=== PATIENT | male | born 1945 | race Caucasian/White ===

== ENCOUNTER 2019-09-21 12:07 | Day surgery (SDC) | payer MEDICARE, BC ==
[2019-09-20 09:19] VITALS: BMI 27.1
[2019-09-21 12:48] LABS: #Eosinphils 0.1 thou/uL (0.0-0.7); #Lymphocytes 1.2 thou/uL (1.20-3.40); #Monocytes 0.5 thou/uL (0.11-0.59); #Neutrophils 3.7 thou/uL (1.40-6.50); %Basophils 0.5 % (0.0-1.0); %Lymphocytes 21.7 % (21.0-51.0); %Monocytes 9.6 % (0.0-10.0); %Neutrophils 66.2 % (42.0-75.0); Hemoglobin 12.8 g/dL (14.0-18.0); Mean Corpuscular HGB CONC 34.2 g/dL (32.0-36.0); Mean Corpuscular Hemoglobin 29.5 pg (27.0-31.0); Mean Corpuscular Volume 86.3 fL (78.0-98.0); Mean Platelet Volume 6.6 fL (7.4-10.4); Platelet Count 196 thou/uL (130-400); RBC Distribution Width 11.8 % (11.5-14.5); Red Blood Cell (RBC) Count 4.33 mill/uL (4.70-6.10); White Blood Cell (WBC) Count 5.6 thou/uL (4.8-10.8)
[2019-09-21 12:54] LABS: INR-International Normal Ratio 1.3; Prothrombin Time 15.7 SEC (12.0-14.7)
[2019-09-21 12:55] LABS: PTT 33.6 SEC (22.9-36.1)
[2019-09-21 13:06] LABS: Anion Gap 13 mmol/L (10-20); BUN (Urea Nitrogen) 18 mg/dL (8.4-25.7); Calc. Creatinine Clearance 113 mL/min (70-130); Calcium 9.1 mg/dL (7.8-10.44); Carbon Dioxide 27 mmol/L (23-31); Chloride 104 mmol/L (98-107); Estimated GFR-MDRD Greater than 90; Glucose 86 mg/dL (83-110); Potassium 3.8 mmol/L (3.5-5.1); Sodium 140 mmol/L (136-145)
[2019-09-21] MEDS ORDERED: PROPOFOL 20 ML ONE (13:30)
--- NOTE | 2019-09-21 14:27 | EKG ---
Test Reason : PREOP CARDIOVERSION Blood Pressure : / mmHG Vent. Rate : 113 BPM Atrial Rate : 226 BPM P-R Int : 000 ms QRS Dur : 086 ms QT Int : 344 ms P-R-T Axes : -66 041 -55 degrees QTc Int : 471 ms narrow complex regular rhythm Marked ST abnormality, possible inferior subendocardial injury Abnormal ECG When compared with ECG of 05-OCT-2011 08:52, Atrial flutter has replaced Sinus rhythm Vent. rate has increased BY [address] now depressed in Inferior leads ST now depressed in Anterior leads Confirmed by DR. Garcia REYES ([id number]) on 09/21/2019 2:26:43 PM Referred By: [facility] Confirmed By:DR. Garcia REYES
--- NOTE | 2019-09-21 14:27 | EKG ---
Test Reason : POST CARDERVISION Blood Pressure : / mmHG Vent. Rate : 078 BPM Atrial Rate : 078 BPM P-R Int : 200 ms QRS Dur : 086 ms QT Int : 400 ms P-R-T Axes : 069 049 058 degrees QTc Int : 456 ms Normal sinus rhythm Minimal voltage criteria for LVH, may be normal variant Borderline ECG When compared with ECG of 21-SEP-2019 12:30, (Unconfirmed) Sinus rhythm has replaced Atrial flutter ST no longer depressed in Inferior leads Confirmed by DR. Garcia RYEES ([id number]) on 09/21/2019 2:27:24 PM Referred By: [facility] Confirmed By:DR. Garcia REYES
--- NOTE | 2019-09-21 20:11 | OP ---
DATE OF PROCEDURE: 09/21/2019 REFERRING PHYSICIAN: PROCEDURE PERFORMED: Electrical cardioversion. REASON FOR PROCEDURE: Mr. Adames is a 74-year-old man, with history of persistent atrial arrhythmias post ablation June 2019, redo ablation in August 2019. 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 DESCRIPTION OF PROCEDURE: The patient received propofol by Anesthesia specialist. After adequate level of sedation achieved, a synchronized 70-joule shock promptly converted the patient back to sinus rhythm. CONCLUSION: Successful cardioversion. PLAN: Continue Multaq and anticoagulation. Routine followup in the office. Job ID: [id number]
== END 2019-09-21 15:00 | disposition home or self-care (01) ==
LOC: CCL 12:07
PROVIDERS: ATTEND Internal Medicine Cardiovascular Disease
PROC: 5A2204Z Restoration of Cardiac Rhythm, Single (ICD-10-PCS; principal; 2019-09-21)
DX: I48.4 Atypical atrial flutter (principal); I42.0 Dilated cardiomyopathy; I10 Essential (primary) hypertension; E11.9 Type 2 diabetes mellitus without complications; E78.5 Hyperlipidemia, unspecified; M19.90 Unspecified osteoarthritis, unspecified site; G47.30 Sleep apnea, unspecified; Z79.01 Long term (current) use of anticoagulants; Z79.84 Long term (current) use of oral hypoglycemic drugs; Z79.899 Other long term (current) drug therapy; Z88.8 Allergy status to other drugs, medicaments and biological substances; Z91.048 Other nonmedicinal substance allergy status
CPT/HCPCS: 36415; 80048; 85025; 85610; 85730; 92960; 93005; 93010; J2704